=== PATIENT | female | born 1965 | race Caucasian/White ===

== ENCOUNTER → 2018-04-04 | Outpatient (CLI) | payer BC, OTHER ==
--- NOTE | 2018-04-04 13:49 | US ---
EXAMINATION TYPE: US venous doppler duplex LE RT DATE OF EXAM: 04/04/2018 1:31 PM COMPARISON: NONE CLINICAL HISTORY: [id number] PAIN IN RT LOWER LEG. right leg cramping, no h/o dvt SIDE PERFORMED: Right TECHNIQUE: The lower extremity deep venous system is examined utilizing real time linear array sonog hilary with graded compression, doppler sonography and color-flow sonography. VESSELS IMAGED: External Iliac Vein (EIV) Common Femoral Vein Deep Femoral Vein Greater Saphenous Vein * Femoral Vein Popliteal Vein Small Saphenous Vein * Proximal Calf Veins (* superficial vessels) Right Leg: Appears negative for DVT spoke with ordering PAC Josie Allan regarding revising order to state right leg venous doppler and tech impression of negative findings. New order is to be faxed. IMPRESSION: 1. No diagnostic evidence of DVT as visualized.
== END | disposition home or self-care (01) ==
LOC: RADUSWWP 13:02
PROVIDERS: ATTEND Family Medicine
DX: M79.661 Pain in right lower leg (principal)

== ENCOUNTER → 2020-05-22 | Outpatient (CLI) | payer OTHER ==
--- NOTE | 2020-05-22 13:39 | XR ---
Lumbosacral spine HISTORY: Low back pain 5 views of lumbosacral spine Bone mineralization is reduced. There is multilevel spondylosis. Lumbar vertebral bodies show preserv ed height. Retrolisthesis grade 1 L4-5. Loss of disc height L3-4, L4-5 and L5-S1, associated vacuum p henomenon. Sclerosis is present in the posterior elements. No evident spondylolysis. Surgical clips a re present right upper quadrant. There is mild spinal curvature. IMPRESSION: Degenerative disease, facet arthropathy, osteopenia.
== END | disposition home or self-care (01) ==
LOC: RADXRYALE 10:36
PROVIDERS: ATTEND Physician Assistant Medical
DX: M47.817 Spondylosis without myelopathy or radiculopathy, lumbosacral region (principal); M51.37 Other intervertebral disc degeneration, lumbosacral region; M85.80 Other specified disorders of bone density and structure, unspecified site
CPT/HCPCS: 72110

== ENCOUNTER → 2020-12-03 | Outpatient (CLI) | payer OTHER ==
--- NOTE | 2020-12-03 08:11 | CT ---
EXAMINATION TYPE: CT sinus wo con DATE OF EXAM: 12/03/2020 COMPARISON: None HISTORY: Chronic sinusitis CT DLP: 605.9 mGycm. Automated Exposure Control for Dose Reduction was Utilized. TECHNIQUE: CT scan of the sinuses is performed without contrast, axial images are obtained, coronal r eformatted images are also reviewed. FINDINGS: The paranasal sinuses including the frontal, ethmoid, sphenoid, and maxillary sinuses bila terally are well-aerated without abnormal opacification. The ostiomeatal complex is patent bilateral ly on the coronal images. Visualized portion of mastoid air cells show no abnormal opacification. The globes are intact bilate rally, punctate calcification present at the level of the head of the optic nerve on the left. IMPRESSION: The sinuses are clear and the ostiomeatal complex is patent bilaterally. Optic drusen on the left.
== END | disposition home or self-care (01) ==
LOC: RADCTMAIN 07:23
PROVIDERS: ATTEND Otolaryngology
DX: H47.322 Drusen of optic disc, left eye (principal)
CPT/HCPCS: 70486

== ENCOUNTER → 2021-01-24 | Outpatient (CLI) | payer OTHER ==
[2021-01-26 08:18] LABS: Alt. alternata IgE Class CLASS 0; Alternaria alternata IgE <0.10 kU/L (<0.10); Asperg. fumagatus IgE <0.10 kU/L (<0.10); Asperg. fumagatus IgE Class CLASS 0; Aureo. pullulans IgE <0.10 kU/L (<0.10); Aureo. pullulans IgE Class CLASS 0; Birch(Com.Silvr) IgE <0.10 kU/L (<0.10); Birch(Com.Silvr) IgE Class CLASS 0; Candida albicans IgE Class CLASS 0/1; Cat Epith & Dander IgE <0.10 kU/L (<0.10); Cat Epith & Dander IgE Class CLASS 0; Clad herbarum IgE <0.10 kU/L (<0.10); Clad herbarum IgE Class CLASS 0; Cockroach IgE <0.10 kU/L (<0.10); Com. Pigweed IgE <0.10 kU/L (<0.10); Com. Pigweed IgE Class CLASS 0; Cottonwood IgE <0.10 kU/L (<0.10); Dermato. Pteronyssinus Class CLASS 0; Dermato. Pteronyssinus IgE <0.10 kU/L (<0.10); Dermato. farinae IgE <0.10 kU/L (<0.10); Dermato. farinae IgE Class CLASS 0; Dog Dander IgE <0.10 kU/L (<0.10); English Plantain IgE Class CLASS 0; Epicoccum purpurascens Class CLASS 0; Epicoccum purpurascens IgE <0.10 kU/L (<0.10); Johnson Grass IgE Class CLASS 0; Lamb's Quarter IgE 0.15 kU/L (<0.10); Lamb's Quarter IgE Class CLASS 0/1; Maple (Box Elder) IgE <0.10 kU/L (<0.10); Maple (Box Elder) IgE Class CLASS 0; Mucor racemosus IgE <0.10 kU/L (<0.10); Mucor racemosus IgE Class CLASS 0; Oak IgE <0.10 kU/L (<0.10); Rhizopus nigricans IgE <0.10 kU/L (<0.10); Rhizopus nigricans IgE Class CLASS 0; S.rostrata/Helminth Class CLASS 0; S.rostrata/Helminth IgE <0.10 kU/L (<0.10); Sycamore(Mpl.Lf) IgE <0.10 kU/L (<0.10); Sycamore(Mpl.Lf) IgE Class CLASS 0; Timothy Grass IgE <0.10 kU/L (<0.10); Timothy Grass IgE Class CLASS 0; Walnut Tree IgE <0.10 kU/L (<0.10); Walnut Tree IgE Class CLASS 0; White Ash IgE Class CLASS 0
== END | disposition home or self-care (01) ==
LOC: LABWHC1 08:17
PROVIDERS: ATTEND Otolaryngology
DX: L50.0 Allergic urticaria (principal); B44.89 Other forms of aspergillosis; J30.89 Other allergic rhinitis
CPT/HCPCS: 36415; 86001; 86003

== ENCOUNTER 2021-10-28 11:22 | Emergency (ER) | payer OTHER ==
[2021-10-28 11:32] VITALS: TEMP 97.8
--- NOTE | 2021-10-28 12:35 | CT ---
EXAMINATION TYPE: CT brain christopher strong con DATE OF EXAM: 10/28/2021 COMPARISON: None HISTORY: slip and fall, hit back of head, trauma and pain CT DLP: 1485 mGycm Automated exposure control for dose reduction was used. TECHNIQUE: CT scan of the head and cervical spine are performed without contrast. FINDINGS: There is no acute intracranial hemorrhage, mass effect, or midline shift identified. The ventricles and sulci are within normal limits in size. Mild inferior cerebellar tonsillar ectopia n oted. There is cortical atrophy. The globes are intact and the visualized sinuses are clear. Cervical spine is visualized in its entirety from C1 through upper thoracic levels and demonstrates s atisfactory alignment without evidence of acute fracture or dislocation. Prevertebral soft tissue ap pears within normal limits. There is multilevel spondylosis and facet arthropathy. Loss of disc heigh t present at C5-6. The C1-C2 articulation is unremarkable. IMPRESSION: 1. There is no acute fracture or dislocation evident in the cervical spine. 2. No acute intracranial hemorrhage, mass effect, or midline shift is seen.
--- NOTE | 2021-10-28 12:45 | ED ---
Fall HPI - General Chief Complaint: Fall Stated Complaint: Fall Time Seen by Provider: 10/28/21 11:30 Source: EMS Mode of arrival: EMS - History of Present Illness Initial Comments: 56-year-old female presents emergency Department after she sustained a fall at work. She works at the [employer]. She states that she was pulling some hoses when she lost her balance and fell. She fell onto her right hip and then backwards onto the back of her head. She did not lose consciousness. Has a large occipital hematoma. She admits that she had intense pain when it first happened which has now resolved. Denies any headaches or visual changes. No nausea or vomiting. She has been ambulatory without difficulty. No unilateral numbness or weakness. She has chronic right hip pain and states it doesn't feel any worse than it normally does. She has been able to ambulate without difficulty. Her work recommended that she come into the emergency room for evaluation. No other alleviating, vault person modifying factors - Related Data Home Medications Medication Instructions Recorded Confirmed Levothyroxine Sodium [Synthroid] 25 mcg PO DAILY 09/29/15 10/28/21 Calcium Carbonate [Calcium] 600 mg PO HS 10/28/21 10/28/21 Cholecalciferol [Vitamin D3 (25 25 mcg PO HS 10/28/21 10/28/21 Mcg = 1000 Iu)] Diclofenac Sodium 50 mg PO BID PRN 10/28/21 10/28/21 lisinopriL [Zestril] 10 mg PO DAILY 10/28/21 10/28/21 Allergies Allergy/AdvReac Type Severity Reaction Status Date / Time erythromycin base AdvReac Nausea & Verified 10/03/15 08:53 Vomiting sulfamethoxazole AdvReac Nausea & Verified 10/03/15 08:53 [From Bactrim] Vomiting trimethoprim [From Bactrim] AdvReac Nausea & Verified 10/03/15 08:53 Vomiting Review of Systems ROS Statement: Those systems with pertinent positive or pertinent negative responses have been documented in the HPI. ROS Other: All systems not noted in ROS Statement are negative. Past Medical History Past Medical History: GERD/Reflux, Hypertension, Skin Disorder, Thyroid Disorder Additional Past Medical History / Comment(s): HIATAL HERNIA, BLOATING, ABD PAIN, CONSTIPATION, DIARRHEA, STATES "HAS AN OCCASIONAL SKIN CONDITION IN AREAS WHERE SHE SWEATS" History of Any Multi-Drug Resistant Organisms: None Reported Past Surgical History: Cholecystectomy Additional Past Surgical History / Comment(s): EGD Past Anesthesia/Blood Transfusion Reactions: No Reported Reaction Past Psychological History: No Psychological Hx Reported Past Alcohol Use History: Occasional Additional Past Alcohol Use History / Comment(s): STATES STARTED SMOKING AGE 17, 1 PPD Past Drug Use History: None Reported - Past Family History Mother Family Medical History: Deep Vein Thrombosis (DVT) General Exam General appearance: alert, in no apparent distress Head exam: Present: normocephalic, other (right occipital hematoma - 5 x 6 cm) Eye exam: Present: normal appearance, PERRL, EOMI. Absent: scleral icterus, conjunctival injection, periorbital swelling ENT exam: Present: normal exam, mucous membranes moist Neck exam: Present: normal inspection. Absent: tenderness, meningismus, lymphadenopathy Respiratory exam: Present: normal lung sounds bilaterally. Absent: respiratory distress, wheezes, rales, rhonchi, stridor Cardiovascular Exam: Present: regular rate, normal rhythm, normal heart sounds. Absent: systolic murmur, diastolic murmur, rubs, gallop, clicks GI/Abdominal exam: Present: soft, normal bowel sounds. Absent: distended, tenderness, guarding, rebound, rigid Extremities exam: Present: normal inspection, full ROM, normal capillary refill. Absent: tenderness, pedal edema, joint swelling, calf tenderness Back exam: Present: normal inspection Neurological exam: Present: alert, oriented X3, CN II-XII intact Psychiatric exam: Present: normal affect, normal mood Skin exam: Present: warm, dry, intact, normal color. Absent: rash Course Vital Signs 10/28/21 10/28/21 11:28 13:08 Temperature 97.8 F Pulse Rate 81 77 Respiratory 18 16 Rate Blood Pressure 172/97 157/87 O2 Sat by Pulse 99 97 Oximetry Medical Decision Making - Medical Decision Making Upon arrival patient was placed into room 29. A thorough history and physical exam was performed. The patient is sent for CT of her brain and cervical spine which demonstrates no acute injuries. Patient's does have a 10 panel drug test performed as this is requested by her work. She'll be discharged home and instructed to follow up with her Workmen's Compensation as needed. Return for any new or worsening symptoms. Patient was discharged home in stable condition Disposition Clinical Impression: Fall, Concussion without loss of consciousness Disposition: HOME SELF-CARE Condition: Stable Instructions (If sedation given, give patient instructions): Concussion (ED) Additional Instructions: Please follow-up with primary care doctor in 2-4 days. Return for any new or worsening symptoms Is patient prescribed a controlled substance at d/c from ED?: No Referrals: Luís Ortiz DO [Primary Care Provider] - 1-2 days Time of Disposition: 12:45
[2021-10-28] MEDS ORDERED: IBUPROFEN 600 MG TAB PO STA (12:49)
[2021-10-28 13:10] VITALS: BP 157/87; PULSE 77; RESP 16
== END 2021-10-28 13:09 | disposition home or self-care (01) ==
LOC: EC 11:22
DX: S06.0X0A Concussion without loss of consciousness, initial encounter (principal); G89.29 Other chronic pain; E07.9 Disorder of thyroid, unspecified; K21.9 Gastro-esophageal reflux disease without esophagitis; I10 Essential (primary) hypertension; Z88.1 Allergy status to other antibiotic agents; Z88.2 Allergy status to sulfonamides; Z90.49 Acquired absence of other specified parts of digestive tract; Z87.891 Personal history of nicotine dependence; Z79.899 Other long term (current) drug therapy; W01.10XA Fall on same level from slipping, tripping and stumbling with subsequent striking against unspecified object, initial encounter; Y99.0 Civilian activity done for income or pay
CPT/HCPCS: 70450; 72125; 99284

== ENCOUNTER → 2023-04-26 | Outpatient (CLI) | payer OTHER ==
--- NOTE | 2023-04-27 22:39 | XR ---
EXAMINATION TYPE: XR lumbosacral spine min 4V DATE OF EXAM: 04/26/2023 COMPARISON: 05/22/2020 HISTORY: Lumbago right-sided sciatica TECHNIQUE: 5 view lumbar spine FINDINGS: There are 5 lumbar-type vertebral bodies. T12 ribs are rudimentary. Pedicles are intact. Fa cet degenerative changes are present. There is loss of disc height at L3-4 through L5-S1. Some mild v acuum phenomenon is present all 45. Remaining disc heights are preserved. Spondylosis is present. No spondylolytic defects are evident. No significant interval change from prior study. IMPRESSION: 1. Degenerative facet changes and lower lumbar spine degenerative disc changes.
== END | disposition home or self-care (01) ==
LOC: RADXRYALE 15:53
PROVIDERS: ATTEND Physician Assistant
DX: M47.26 Other spondylosis with radiculopathy, lumbar region (principal); M51.16 Intervertebral disc disorders with radiculopathy, lumbar region
CPT/HCPCS: 72110

== ENCOUNTER → 2024-01-23 | Outpatient (CLI) | payer BC ==
--- NOTE | 2024-01-23 16:45 | CT ---
EXAMINATION TYPE: CT lumbar spine wo con CT DLP: 818 mGycm, Automated exposure control for dose reduction was used. DATE OF EXAM: 01/23/2024 4:35 PM COMPARISON: . CLINICAL INDICATION:Female, 59 years old with history of M54.50 LOW BACK PAIN M54.16 LOW BACK PAIN; P HH, low back pain TECHNIQUE: Multiple axial images were obtained from the midportion of T11 through the sacroiliac jeanine nts. Soft tissue and bone windows in coronal and sagittal planes were obtained and reviewed. 3-D ref ormats of the bones were created on a separate workstation and submitted for review. Contrast used: mL of , (None, if empty). Oral contrast used: (None, if empty). FINDINGS: Alignment: There are 5 lumbar type vertebral bodies within normal alignment. Bone: Multilevel degeneration changes throughout the spine with osteophyte formation disc space narr owing and facet joint arthropathy. No evidence for fracture. Early Schmorl's nodes noted at multiple levels including the inferior endplate of L1 superior endplate of L2 superior endplate of L3. Vacuum disc phenomenon at L4-L5 and L5-S1. Discs: T12-L1: No spinal canal or neural foraminal stenosis is identified. L1-L2: No spinal canal or neural foraminal stenosis is identified. L2-L3: No spinal canal or neural foraminal stenosis is identified. L3-L4: Facet joint arthropathy and disc bulging result with mild spinal canal stenosis and mild to mo derate bilateral neural foraminal stenosis. L4-L5: Facet joint arthropathy and disc bulging result with moderate to severe spinal canal stenosis and mild to moderate bilateral neural foraminal stenosis. L5-S1: Facet joint arthropathy and disc bulging result with mild to moderate spinal canal stenosis an d moderate bilateral neural foraminal stenosis. Other: The gallbladder surgically absent. Atherosclerosis of the arterial vasculature. What is thoug ht to represent the appendix is gas-filled. IMPRESSION: 1. No evidence for spinal fracture. There is moderate disc degeneration changes throughout the spine worse in the lower lumbar spine. 2. L4-L5 moderate to severe spinal canal stenosis. 3. Moderate bilateral L5-S1 neural foraminal stenosis.
== END | disposition home or self-care (01) ==
LOC: RADCTMAIN 16:18
PROVIDERS: ATTEND Orthopaedic Surgery
DX: M54.16 Radiculopathy, lumbar region (principal); M48.061 Spinal stenosis, lumbar region without neurogenic claudication; M51.36 Other intervertebral disc degeneration, lumbar region
CPT/HCPCS: 72131

== ENCOUNTER → 2024-06-22 | Outpatient (CLI) | payer BC | END | disposition home or self-care (01) | LOC: LABPAT 11:16 | PROVIDERS: ATTEND Orthopaedic Surgery | DX: Z01.818 Encounter for other preprocedural examination (principal); Z22.322 Carrier or suspected carrier of Methicillin resistant Staphylococcus aureus; M47.26 Other spondylosis with radiculopathy, lumbar region | CPT/HCPCS: 86850; 86900; 86901; 87070 ==

== ENCOUNTER 2024-06-29 10:55 | Day surgery (SDC) | payer BC ==
[2024-06-25 14:15] VITALS: BMI 29.4
[~2024-06-29 10:55] MED LIST: ACETAMINOPHEN TAB 500 MG TAB PO PRN; MIDAZOLAM 2 MG/2 ML VIAL IV PRN; TRANEXAMIC 1,000 MG/100ML-NACL 1,000 MG in SALINE 1 100ML.BAG IVPB PRN
[2024-06-29] MEDS: LACTATED RINGERS 1,000 ML IV ONE ×2 (11:38→13:58)
[2024-06-29] MEDS: IV FLUID CONTINUATION 1,000 ML IV ONE (11:38)
[2024-06-29] MEDS: ONDANSETRON 4 MG/2 ML VIAL IVP PRN (11:45)
[2024-06-29] MEDS: GABAPENTIN 300 MG CAP PO PRN (11:45)
[2024-06-29] MEDS: SCOPOLAMINE 1 MG/72 HR PATCH TRANSDERM ONE (11:47)
[2024-06-29] MEDS ORDERED: KETOROLAC 15 MG/ML 1 ML VIAL ONE (12:29)
[2024-06-29] MEDS ORDERED: fentaNYL (PF) 50 MCG/ML 2 ML AMP ONE (12:29)
[2024-06-29] MEDS ORDERED: NEOSTIGMINE 1 MG/ML 10 ML VIAL ONE (12:29)
[2024-06-29] MEDS ORDERED: TRANEXAMIC 1,000 MG/100ML-NACL PREMIX BAG ONE (12:29)
[2024-06-29] MEDS ORDERED: LIDOCAINE 1% INJ 10MG/ML (20 ML MDV) ONE (12:29)
[2024-06-29] MEDS ORDERED: GLYCOPYRROLATE 0.2 MG/ML 2 ML VIAL ONE (12:29)
[2024-06-29] MEDS ORDERED: PROPOFOL 10 MG/ML 20 ML VIAL IV ONE (12:29)
[2024-06-29] MEDS ORDERED: ROCURONIUM 10 MG/ML (5 ML VIAL) IV ONE (12:29)
[2024-06-29] MEDS ORDERED: SUCCINYLCHOLINE CHLORIDE 200 MG/10 ML VIAL IV ONE (12:29)
[2024-06-29] MEDS ORDERED: LIDOCAINE 4% LTA KIT (4 ML) TOPICAL ONE (12:29)
[2024-06-29] MEDS ORDERED: MIDAZOLAM 2 MG/2 ML VIAL ONE (12:29)
[2024-06-29] MEDS ORDERED: PHENYLEPHRINE 10 MG/ML VIAL ONE (12:29)
[2024-06-29] MEDS ORDERED: HYDROmorphone (PF) 1 MG/ML ONE (12:29)
--- NOTE | 2024-06-29 12:48 | P.HPOR ---
History of Present Illness H&P Date: 06/22/24 .D:Date: 06/22/24 : 04:13pm .T:Title: *PRE-OP H1 [facility] [address] [place], [place] [address] [address]| PROVIDER: DIRK YOUSSEF DO CLINICAL SUMMARY: * Ms. Cox is a 59-year-old female who presents with severe lumbar pain rated 8/10 on VAS scale. She has failed conservative management including DIANE, PT, OT, HEP, medications, and activity modifications. Imaging reveals multilevel degenerative lumbar spondylosis with right lateral recess stenosis at L4-L5 affecting the L5 nerve root. She reports significant leg pain and difficulty with bowel movements due to pain and weakness, though denies miah incontinence. SURGICAL PLAN: Patient is scheduled for L1-L3 laminectomy decompression. Pre-operative kenny arance from PCP is required. Patient has been counseled extensively on surgical risks and benefits, including potential complications such as infection, bleeding, nerve injury, and hardware-related issues. Educational materials have been provided and reviewed with the patient. FOLLOW-UP PLAN: Patient will return for post-operative evaluation. Medications have been reviewed. Patient understands post-operative care instructions and has had all questions addressed. Will continue to monitor progress and adjust treatment plan as needed. DEMOGRAPHICS: Age: 59 year Height: 5'7" Weight: 215 lbs BP:/ BMI: 33.67 kg/m2 Occupation: *[employer] CC: *lumbar pain VAS: *8 HISTORY: Ms. Cox presents today, 06/22/24 for a pre-operative appointment preceding her L1-L3 LAMINECTOMY DECOMPRESSION. She states she continues to have severe debilitating issues related to her low back and legs despite several DIANE, PT, OT, HEP, medications Rx and OTC as well as ice/heat, rest and activity modific ation. She states she is ready for surgical intervention. She states she just wants to be out of pain and have her legs feel better and work better. No new trauma. No f/c/sob/cp at this time. Denies bowel or bladder issues in incontinence, but she finds it hard to have Bm due to pain in the legs are back as well as what seems like weakness in her ability to go. She is not losing stool or having UI at this time. Patient is currently taking [place]. She ambulates independently. Ms. Cox presents today, 04/04/24 on follow up of her low back and to discuss further surgical options as well as schedule surgery. She states she continues to have severe debilitating issues related to her low back and legs despite several DIANE, PT, OT, HEP, medications Rx and OTC as well as ice/heat, rest and activity modification. She states she is ready for surgical intervention. She states she just wants to be out of pain and have her legs feel better and work better. No new trauma. No f/c/sob/cp at this time. Denies bowel or bladder issues in incontinence, but she finds it hard to have Bm due to pain in the legs are back as well as what seems like weakness in her ability to go. She is not losing stool or having UI at this time. Ms. Cox presents to the office today, 01/25/24, for re-evaluation of low back pain and review CT scan lumbar spine results. The patient reports experiencing a continued sharp, shooting pain pain across the low jhon that radiates down into the left lower extremity with a burning, throbbing quality. She notes her left leg pain is associated with numbness and tingling through the L5 distribution. She states her current symptoms worsen after prolonged sitting, walking, and standing. She states her symptoms have worsened over the last 2 months. She reports mild night time symptoms related to her ongoing pain and associated symptoms. She trialed physical therapy 3 months ago causing worsening symptoms. She notes that water therapy provides her with some relief. She has trialed all other conservative measures listed below with mild, temporary relief. She is currently taking Tramadol for relief of her current symptoms. She previously trialed Lyrica with no relief. Otherwise, the patient denies any f/c/sob/cp, perineal numbness or tingling, bowel, or bladder incontinence/retention. Patient is ambulatory independently. The patients past social, medical, family, surgical history, as well as review of systems, have been reviewed. Please refer to the History and Physical form that has been scanned into our electronic medical record system. 16 points review of systems completed and as stated in HPI, all other systems reviewed are negative. PAST TREATMENTS: PAST IMAGING: - Yes TRAUMA RELATED: - No WORK RELATED: - No PT IN LAST 6 MONTHS: - Yes; made symptoms worse PHYSICIAN DIRECTED HOME EXERCISE PROGRAM: - Yes; no significant relief ACTIVITY MODIFICATION: - Yes MEDICATIONS: - Tramadol ALTERNATIVE INTERVENTIONS (CHIROPRACTIC, ACUPUNCTURE, MASSAGE, RICE): - Yes (home heat/ice therapies & rest); mild, temporary relief BRACING: - None INJECTIONS (DIANE, TF, RFA): - Yes, DIANE of the Lumbar spine at OAwith no significant relief MEDICAL HISTORY: Past Medical History: REVIEWED STATED IN CHART Past Surgical History: REVIEWED STATED IN CHART Social History: REVIEWED STATED IN CHART SMOKING: Current smoker ETOH: None SUBSTANCES: None Family History: REVIEWED STATED IN CHART Current Medications: P1Rx: levothyroxine Ref: 0 Rx: lisinopriL 20 mg tablet Ref: 0 Rx: traMADol Ref: 0 P1 PHYSICAL EXAM: General: AOX3, NAD, Well hydrate, Well nourished, in no acute distress HEENT: No lumps or masses Extremities: No color changes, no pooling Hairy Patches: ABSENT Dorsal Skin Dimples: Normal [employer] spots: ABSENT Surgical Incisions: Muscle Appearance: Well formed, no atrophy Palpation: Midline: NO Paracervical: NO Parathoracic: NO Paralumbar: YES SIJ Testing: RIGHT/LEFT TTP: No [place] Finger: No FABER4: No Compression: No Distraction: No Thigh thrust: No Hip thrust: No Postural Balance: Coronal: BALANCED Sagittal: BALANCED Shoulder height: LEVEL Pelvic Girdle: LEVEL ROM and Appearance: Neck: UNRESTRICTED Lumbar: RESTRICTED Shoulders: Symmetrical Hips: Symmetrical Knees: Symmetrical Hands: Symmetrical Feet: Symmetrical VASCULAR STATUS: RUE- 2 LUE-2 RLE-2 LLE-2 Edema: NONE NEUROLOGICAL EXAMINATION: Mental Status: Awake, alert, oriented fully with normal attention, concentration and memory. Fluent appropriate speech. CRANIAL NERVES: I: Olfactory not tested. II: Visual acuity normal, no visual field deficit noted with confrontation. III,IV: Normal pupillary reflexes & intact extraocular movements without nystagmus. V,: Intact symmetrical facial sensation. VII: Intact symmetrical facial motor movementVIII: Hearing intact. IX,X: Intact gag, swallow, & normal voice. XI: Sternocleidomastoid, trapezius function intact. XII: Tongue midline with normal movements. TENSIONING: SLR-NEG Lhermittes- NEG Spurling's Sign- NEG Cubital Percussion- NEG Tinels at wrist- NEG MOTOR EXAM (0-5/5, NT) Muscle appearance:Symmetrical, without signs of atrophy or dystrophy UPPER EXTREMITY RIGHT LEFT Shoulder Abduction 5 5 Biceps 5 5 Triceps 5 5 Wrist Extension 5 5 Hand Intrinsics 5 5 Power Generation Engineer 5 5 -Hand and finger dexterity intact bilaterally? YES -Dysdiadochokinesia examination negative bilaterally? YES LOWER EXTREMITY RIGHT LEFT Hip Flexion 4 5 Knee Extension 4 5 Knee Flexion 4 5 Dorsiflexion 4 5 Plantarflexion 4 5 EHL 4 5 FHL 4 5 REFLEXES (0-4/2, NT): RUE-2LUE-2 RLE-2 LLE-2 PATHOLOGICAL REFLEXES: Hoffmans: ABSENT BL Clonus: ABSENT BL Babinski: NEG BL Rectal Tone: INTACT SENSATION (0-4, NT): RUE-2LUE-2 RLE-2 LLE-2 Dermatomal deficit: L4-L5 GAIT AND FUNCTIONAL EVALUATION: Ambulatory aids- INDEPENDENT Rombergs test- NEG toe/heel walk- INTACT Squatting to a min of 60 deg and back- ABLE Single leg stance- ABLE Hand to finger (nose)- ABLE smooth Trendelenburg sign negative bilaterally IMAGING: XRay Lumbar Multiview (AP, Lateral, Flexion, Extension) with AP pelvis; 5 views taken at [facility] on 12/15/23: Mild to moderate spondylitic and degenerative changes L3-S1. Multilevel diminished disc height at these levels. Mild Grade 1 retrolisthesis L4 onto L5. Vertebral body heights are preserved. No acute osseous abnormalities. Pelvis: The visualized sacrum and iliac wings are within normal limits. CT Date: 01/23/2024 Location: [facility] Region:Lumbar Contrast:N FINDINGS: Images reviewed with pt. There is seen here L3-S1 spondylosis with disc degeneration, facet arthropathy and hypertrophy. There is noted again a L4-5 HNP paracentral to the right side with central and foraminal encroachment that is moderate at this time. This is better seen on MRI. No acute fractures noted. Alignment shows decreased LL secondary to the degenerative collapse overall. There are no lesions noted. [facility]: Impression: 1. Multilevel degenerative lumbar spondylosis 2. At L4-L5 there is right lateral recess stenosis with abutment of the transversing right L5 nerve root. There is also narrowing of the left lateral recess and mild narrowing of the spinal canal. IMPRESSION: It was my pleasure to have seen and examined Zarina. I reviewed the patient's clinical syndrome, physical findings, and imaging studies during the appointment today. It is my impression that the patient has a diagnosis of. 1. L4-5 herniated nucleus pulposus 2. L3-S1 spondylosis 3. RIGHT > LEFT lower extremity radiculopathy 4. Low back pain PLAN: DISCUSSION: -I have discussed operative versus non-operative treatment measures with the patient. I have recommended surgical intervention in the form of a L1-L3 laminectomy decompression secondary to the patient's symptomatic disc herniation at L4-5 and progressive left lower extremity radiculopathy and stenosis from L1- 3 with correlating sx with MRI. The patient verbally understands all risks and benefits to the procedure and states she would like to proceed, but wants to wait until June 2024 due to specific family and life obligations over the next several months. She will return pre op for re-evaluation and to re- discuss/schedule surgical intervention. SURGICAL RECOMMENDATION -L1-L3 LAMINECTOMY DECOMPRESSION THERAPIES -Cont. with home exercises and home PT exercises as able -Cont. with Heat/Ice as warranted -Cont. with supplementation Vit D, Vit C, Ca2+, High protein diet -OK for massage or other alternative treatment modalities as able. If it exacerbates your sx do not continue ACTIVITY -Recommend walking up to 30 min 2x daily on a flat easy surface with good support. MEDICATIONS -Take as directed -Cont. home medications as directed by your PCP. Check with your PCP for any medication interactions or issues if needed. -Pre op Labs: CBC, BMP, PT, INR, CXR, EKG -PCP clearance for surgery -Risk Review for surgical discussion Spine Surgery Risk Review Ms. Cox is presenting for evaluation of lumbar pain. It was my pleasure to have seen and examined Ms. Cox. In our visit today we have had a chance to go over subjective complaints, physical examination findings and treatments including the natural course history without intervention and various interventional options. The patients imaging demonstrates: XRay Lumbar Multiview (AP, Lateral, Flexion, Extension) with AP pelvis; 5 views taken at [facility] on 12/15/23: Mild to moderate spondylitic and degenerative changes L3-S1. Multilevel diminished disc height at these levels. Mild Grade 1 retrolisthesis L4 onto L5. Vertebral body heights are preserved. No acute osseous abnormalities. Pelvis: The visualized sacrum and iliac wings are within normal limits. CT Date: 01/23/2024 Location: [facility] Region:Lumbar Contrast:N FINDINGS: Images reviewed with pt. There is seen here L3-S1 spondylosis with disc degeneration, facet arthropathy and hypertrophy. There is noted again a L4-5 HNP paracentral to the right side with central and foraminal encroachment that is moderate at this time. This is better seen on MRI. No acute fractures noted. Alignment shows decreased LL secondary to the degenerative collapse overall. There are no lesions noted. [facility]: Impression: 1. Multilevel degenerative lumbar spondylosis 2. At L4-L5 there is right lateral recess stenosis with abutment of the transversing right L5 nerve root. There is also narrowing of the left lateral recess and mild narrowing of the spinal canal. On physical exam, Ms. Cox demonstrates: She states she continues to have severe debilitating issues related to her low back and legs despite several DIANE, PT, OT, HEP, medications Rx and OTC as well as ice/heat, rest and activity modification. She states she is ready for surgical intervention. She states she just wants to be out of pain and have her legs feel better and work better. No new trauma. No f/c/sob/cp at this time. Denies bowel or bladder issues in incontinence, but she finds it hard to have Bm due to pain in the legs are back as well as what seems like weakness in her ability to go. She is not losing stool or having UI at this time. Patient is currently taking [place]. She ambulates independently. I have explained to the patient that as their condition progresses it will cause further neurological deficits and eventual paralysis. Based on the patients imaging, physical exam, and the rapid progression and disabling nature of their symptoms, at this time I recommend surgery in the form of a: L1-L3 LAMINECTOMY DECOMPRESSION. I discussed the risk and benefits of this procedure at length with Ms. Cox. The patient agreed to considered pursuing the procedure abovementioned. Prior to surgery, she should follow up with her PCP (Cardio, ID, IM etc) for clearance. Questions were invited and answered, and the patient wishes to proceed as outlined below. Currently, I am recommendin.L1-L3 LAMINECTOMY DECOMPRESSION 2.Follow up with PCP for surgical clearance 3.Review of surgical risks and benefits as well as an educational packet on the proposed surgical procedure. Risks: All surgical procedures come with inherent risks, including those related to positioning, anesthesia, intraoperative findings, and postoperative complications. It is important to understand that surgery does not come with any guarantee of a successful outcome as complications and adverse events are always possible. The patient was given a handout in office today discussing the surgical procedure and risks associated with the intervention, both of which were discussed with the patient. These risks include but are not limited to the following: * Experiencing same, different or even worse symptoms in back, neck, arms, or legs compared to before surgery. Requiring further surgery or other forms of treatment presently or at some time in the future at same or other levels of the intended spine surgery. On an extreme but fortunately relatively rare basis severe complication such as blindness, stroke, heart attack, temporary and/or permanent nerve injury, paralysis, coma, or may occur, sometimes without known explanation. Surgical complications may include but are not limited to risk of infection, fluid accumulation in the surgical dissection site, including a seroma or hematoma, that requires additional surgery, wound drainage, bleeding, new numbness or weakness, vision changes/loss, spinal fluid leakage, non-healing and/or infected incision, headaches, difficulty or inability to swallow, hoarseness, hemopneumothorax, pneumothorax, impotence, retrograde ejaculation, vaginal dryness; injury to nerves, spinal cord, blood vessels, lymphatics or other vital organs (i.e., bowel injury, injury to the great vessels); heterotopic bone formation; complications related to the hardware such as screws, rods, cages including misplaced hardware, device failure, instrumenta tion at the wrong spine level, hardware fracture/breakage, or hardware loosening; vertebral failure of the spinal column above or below the newly placed hardware; retained surgical instrumentations or devices and the need for further surgery. * Medical risks of the planned spine surgery include but are not limited to generalized Infections to the whole body or local areas outside of the mcclain rgical site (sepsis), heart attack, bleeding, anaphylaxis, meningitis, seizure, epilepsy, hearing loss, burn guidry, laceration of the head or other areas of the body, bruising, hypersensitivity of the skin, bladder over distension; allergic reaction; shoulder injury related to positioning; fat, blood and air clots to other areas of the body like heart, lungs, brain; failure of internal organs such as lungs, kidneys, liver and excessive bleeding. If blood transfusions are necessary, note that transfusions may cause intolerance reactions such as anaphylaxis or other complex reactions. Despite best efforts, the results of spine surgery might not heal in terms of bone, soft tissues such as skin, fascia, ligaments, and joints. Additionally, in order to achieve best possible results, spine surgery may be carried out beyond the initially planned levels and involve decompression, fusion including insertion of hardware at levels other than the original intended area of surgical interest change some portions of the procedure in order to ensure the best possible outcomes. With spine surgery and spinal fusion, there are different off label uses of instrumentation (devices, implants and hardware) as well as biological substances (bone morphogenic proteins, demineralized bone matrix) as well as using extra bone from allograft sources (i.e. cadaver bone) or autograft (iliac crest bone, ribs, or the spine itself). The patient has been given information about these practices and their inherent risks and benefits. [facility] is an educational center that serves as a training facility for neurosurgical and orthopedic [employer] and Nursing students. Physician assistants are medically trained surgical providers who function in the outpatient, inpatient, and operating room setting under the direct supervision of the attending surgeon. [facility] has multiple operating rooms with single and overlapping rooms running daily. They currently function under the required guidelines as produced by the [facility] Finance Committee with regards to the overlapping rooms and will continue to comply with changes to this policy as they occur. The requirements include and are complied with as follows: (1) the critical portions of the overlapping rooms will not occur at the same time, (2) the attending physician will be physically present during the critical portions of the pro cedure and immediately available during the entire case, and (3) a back-up attending is designated should the primary attending not be immediately available. The patient has had a chance to review all the listed information, has been given print outs detailing this information, and has had all his/her questions answered to their satisfaction. It was my pleasure to have seen and examined Ms. Cox. In our visit today we have had a chance to go over my understanding of our patient's current condition, the natural course history without intervention and various interventional options. Questions were invited and answered, and the patient wishes to proceed as outlined above. I have seen and examined the patient for 25 minutes and we have spent more than 50% of the time in repeat and detailed counseling about the patient's condition, its natural course history with out and as much as can be predicted with surgery and re-review of various surgical treatment options. In conclusion, Ms. Cox requested we proceed with the above suggested surgery and are willing to accept risks and limitations of the suggested surgery as nature of the disease process and our best attempts at treatment for the condition. Thank you again for allowing us to be part of your patient's care. Please don't hesitate to contact me if you have any further questions. FOLLOW UP: *POST-OP PLAN AT NEXT VISIT: * RECHECK PATIENT EDUCATION: Medications Reviewed: YES In our visit today Ms. Cox and I have had a chance to go over my understanding of the patient's current condition, the natural course history without intervention and various interventional options. Questions were invited and answered, and the patient wishes to proceed as outlined above. I will be sure to keep you updated after Ms. Cox returns here for further follow-up. Thank you again for your referral. Please do not hesitate to contact me if you have any further questions. Signed and authenticated by: Dirk Quijanoon [facility] [address] [place] [id number] . This message is confidential, intended only for the named recipient(s) and may contain information that is privileged or exempt from disclosure under applica ble law. If you are not the intended recipient(s), you are notified that the dissemination, distribution or copying of this information is prohibited. If you received this message in error, please notify the sender then delete this message. Past Medical History Past Medical History: COPD, GERD/Reflux, Hypertension, Skin Disorder, Thyroid Disorder Additional Past Medical History / Comment(s): chronic back pain,HIATAL HERNIA, BLOATING, ABD PAIN, CONSTIPATION, DIARRHEA, STATES "HAS AN OCCASIONAL SKIN CONDITION IN AREAS WHERE SHE SWEATS" History of Any Multi-Drug Resistant Organisms: None Reported Past Surgical History: Cholecystectomy Additional Past Surgical History / Comment(s): EGD,colonoscopy Past Anesthesia/Blood Transfusion Reactions: No Reported Reaction Additional Past Anesthesia/Blood Transfusion Reaction / Comment(s): no hx blood transfusion Smoking Status: Current every day smoker - Past Family History Mother Family Medical History: Deep Vein Thrombosis (DVT) Medications and Allergies Home Medications Medication Instructions Recorded Confirmed Type Levothyroxine Sodium [Synthroid] 25 mcg PO QAM 09/29/15 06/29/24 History Calcium Carbonate [Calcium] 600 mg PO HS 10/28/21 06/29/24 History lisinopriL [Zestril] 10 mg PO QAM 10/28/21 06/29/24 History Ergocalciferol [Vitamin D2 (1250 1,250 mcg PO WEEKLY 06/25/24 06/29/24 History Mcg = [id number] Iu)] HYDROcodone/APAP 5-325MG [[place] 1 tab PO TID PRN 06/25/24 06/29/24 History 5-325] Phenylephrine HCl [Sudafed PE] 10 mg PO DAILY PRN 06/25/24 06/29/24 History Allergies Allergy/AdvReac Type Severity Reaction Status Date / Time amoxicillin [From Augmentin] AdvReac Unknown Verified 06/29/24 11:30 clavulanic acid AdvReac Unknown Verified 06/29/24 11:30 [From Augmentin] erythromycin base AdvReac Nausea & Verified 06/25/24 14:00 Vomiting sulfamethoxazole AdvReac Rash/Hives Verified 06/25/24 14:01 [From Bactrim] trimethoprim [From Bactrim] AdvReac Rash/Hives Verified 06/25/24 14:01 Physical Examination Osteopathic Statement: *. No significant issues noted on an osteopathic structural exam other than those noted in the History and Physical/Consult.
[2024-06-29] MEDS: THROMBIN (BOVINE) 5,000 UNIT VIAL TOPICAL ONE (13:14)
[2024-06-29] MEDS: BUPIVACAINE (PF) 0.5% 30 ML VIAL SQ ONE (13:14)
[2024-06-29] MEDS: LIDOCAINE 2%-EPI 1:100,000 20 ML VIAL SQ ONE (13:14)
--- NOTE | 2024-06-29 14:36 | P.OP ---
Date of Procedure: 06/29/24 Preoperative Diagnosis: 1. L3-S1 SPONDYLOSIS WITH STENOSIS 2. L4-5 SPONDYLOLISTHESIS STABLE GRADE I 3. LE RADICULOPATHY 4. LOW BACK PAIN 5. L3 PARESTHESIAS Postoperative Diagnosis: 1. L3-S1 SPONDYLOSIS WITH STENOSIS 2. L4-5 SPONDYLOLISTHESIS STABLE GRADE I 3. LE RADICULOPATHY 4. LOW BACK PAIN 5. L3 PARESTHESIAS Procedure(s) Performed: 1. L4-5 LAMINOFORAMINOTOMY FOR NEURAL DECOMPRESSION 2. L3-4 LAMINOFORAMINOTOMY FOR NEURAL DECOMPRESSION 3. L2-3 LAMINOFORAMINOTOMY FOR NEURAL DECOMPRESSION MIS USE OF IO MICROSCOPE RIGHT Implants: NONE Anesthesia: GETA Surgeon: Winston Pineda Acid Blower #1: Adrian Patterson (was present and assisted with all aspects of the case from position to dressing placement) Estimated Blood Loss (ml): 25 IV fluids (ml): 1,000 Urine output (ml): 250 Pathology: none sent Condition: stable Disposition: PACU Indications for Procedure: Ms. Cox is presenting for evaluation of lumbar pain. It was my pleasure to have seen and examined Ms. Cox. In our visit today we have had a chance to go over subjective complaints, physical examination findings and treatments including the natural course history without intervention and various interventional options. The patients imaging demonstrates: XRay Lumbar Multiview (AP, Lateral, Flexion, Extension) with AP pelvis; 5 views taken at [facility] on 12/15/23: Mild to moderate spondylitic and degenerative changes L3-S1. Multilevel diminished disc height at these levels. Mild Grade 1 retrolisthesis L4 onto L5. Vertebral body heights are preserved. No acute osseous abnormalities. Pelvis: The visualized sacrum and iliac wings are within normal limits. CT Date: 01/23/2024 Location: [facility] Region:Lumbar Contrast:N FINDINGS: Images reviewed with pt. There is seen here L3-S1 spondylosis with disc degeneration, facet arthropathy and hypertrophy. There is noted again a L4-5 HNP paracentral to the right side with central and foraminal encroachment that is moderate at this time. This is better seen on MRI. No acute fractures noted. Alignment shows decreased LL secondary to the degenerative collapse overall. There are no lesions noted[facility]: Impression: 1. Multilevel degenerative lumbar spondylosis 2. At L4-L5 there is right lateral recess stenosis with abutment of the transversing right L5 nerve root. There is also narrowing of the left lateral recess and mild narrowing of the spinal canal. On physical exam, Ms. Cox demonstrates: She states she continues to have severe debilitating issues related to her low back and legs despite several DIANE, PT, OT, HEP, medications Rx and OTC as well as ice/heat, rest and activity modification. She states she is ready for surgical intervention. She states she just wants to be out of pain and have her legs feel better and work better. No new trauma. No f/c/sob/cp at this time. Denies bowel or bladder issues in incontinence, but she finds it hard to have Bm due to pain in the legs are back as well as what seems like weakness in her ability to go. She is not losing stool or having UI at this time. Patient is currently taking [place]. She ambulates independently. I have explained to the patient that as their condition progresses it will cause further neurological deficits and eventual paralysis. Based on the patients imaging, physical exam, and the rapid progression and disabling nature of their symptoms, at this time I recommend surgery in the form of a: L2-5 LAMINoforaminotomy with DECOMPRESSION. I discussed the risk and benefits of this procedure at length with Ms. Cox. I discussed with the patient at length on DOS her MRI findings as well as her new CT scan findings again as well as her sx. Today she is having more sx related to her L2-5 region in regards to her radiculopathy, weakness and tensioning signs which correlates better with her MRI. We originally scheduled her for L1-3 due to her sx, but with her change and the MRI findings as well as CT findings we discussed a simple change in levels and she agrees that this is necessary as she wants her pain gone. We discussed this does not change pre or post op instructions. Risks and benefits are as discussed previously, we are simply addressing the affected levels. She agrees and is willing to assume the risks of surgery. The patient agreed to considered pursuing the procedure abovementioned. Prior to surgery, she should follow up with her PCP (Cardio, ID, IM etc) for clearance. Questions were invited and answered, and the patient wishes to proceed as outlined below. Currently, I am recommendin.L2-5 DECOMPRESSIVE LAMINOFORAMINOTOMY Description of Procedure: L2 to L5 RIGHT LAMINOFORAMINOTOMY MINIMALLY INVASIVE The patient was seen and examined in the preoperative area. All preoperative protocols were followed. Informed consent was obtained, risks and benefits of the procedure were discussed at length. Risks including bleeding infection damage to the surrounding tissue and risk of reoperation were discussed with the patient. Risk of anesthesia up to and including was discussed with the patient. These are outlined in the risk review. They were willing to accept these risks and all of the risks of surgery. The patient was given a weight- based dose of antibiotics in the form of 3 g Ancef. The patient was seen and evaluated by the anesthesia team who deemed them fit for surgery. The site was marked, the patient was willing to proceed with the procedure. The patient was transferred to the operative suite by the Department of anesthesia. They were then drifted off to sleep by the department anesthesia and GETA was performed. The patient tolerated this well. [Bautista catheter was placed by nursing staff, atraumatically]. Once confirmation of lines and ventilation the patient was transferred to a [prone [place] table very carefully]. All bony prominences including wrists, elbows, axilla, chest, hips, and thighs, and feet were padded very well. Special attention was paid to the genitalia and these were padded accordingly. SCDs were placed on bilateral lower extremities and were connected. Arms were well padded and placed [on arm boards up and out in the 90/90 position]. Once in position, again we confirmed good ventilation capabilities and that lines were running appropriately. The patient's lumbar] spine was then exposed. 1010s were placed outlining the incision site. Standard alcohol was used to clean the incision site and allowed to dry. C-arm was used to biomark the patient and confirm level for incision which was marked with a skin marker. Operative briefing was performed with all teams and everyone in agreement to proceed. The patient was then prepped and draped in a normal sterile fashion. Timeout was then performed and all parties were in agreement with the procedure to be performed. Fluoroscopy was then used to target the lamina and pars of L3 through S1. Starting at L4-5 and L3-4 a spinal needle was used to target this area with biplanar fluoroscopy once this was target of the skin incision was made appropriately in order to allow for one dating of the retractor cranial and caudal to be able to attend to all levels from a smaller incision. The first dilator was then sent down and targeted at the L4-L5 region on AP and lateral fluoroscopy. Once this was targeted sequential dilation was taken up to a 26 mm tube by 80 mm tube which was in place and secured to the table with a better. Biplanar fluoroscopy confirmed good placement of this tube. Operating microscope was then brought in for visualization. Limited myomectomy was done to expose the lamina and pars as well as facet joints of L3-4 and L4-5. Once these were identified, hemilaminectomy partial medial facetectomy and foraminotomies was performed using high-speed bur Kerrison Alok pituitary rongeurs and up-biting curet. Good decompression was obtained here as well as over the top decompression of L4-L5 to allow for complete dural decompression in this area. We then translated and went up north after meticulous hemostasis to visualize the L2-3 and L3 4 region. Starting at L2-L3 we re-targeted this area with the retractor system sequentially dilating up to 26 mm tube by 80 mm tube. This was then secured to the table with that arm. Limited myomectomy was performed to visualize the lamina and pars of L2-L3 L3-L4. Facet joints were also identified. Hemilaminotomy, partial knee facetectomy and foraminotomy were then performed at L2-3 and L3 4 as well. This was done with high-speed bur Kerrison rongeurs to chair rongeurs and up-biting curette. Ligament of flavum was removed entirely from this area from L2-5. Hjin-ywd-udh decompression was accomplished at L2-3 and L3-L4. Serrano ball probe was then passed at each level and there was good decompression at each level. Again meticulous hemostasis was performed using FloSeal and patties. The wound bed was then copiously irrigated with normal sterile saline. Good seal was obtained. The tubular retractor was then removed under direct visualization. Microscope removed. We then performed closure. Deep fascia was closed with 0 Vicryl. Deep subcu closed with 0 Vicryl superficial subcu closed with 2-0 Vicryl and skin closed with 2-0 nylon in a running fashion trauma stitch. The wound edges approximated very well. Local anesthetic was then placed in the skin. The wound was then cleaned and dressed sterilely with Adaptic 4 x 4 ABDs and Tegaderm. The patient was transferred back to their hospital bed atraumatically. Patient was then awakened and extubated by the department of anesthesia having tolerated the procedure very well with no complications. They were transferred to the postoperative care unit in stable condition.
--- NOTE | 2024-06-29 14:47 | XR ---
EXAMINATION TYPE: XR lumbar spine 2 or 3V, FL guidance operating room DATE OF EXAM: 06/29/2024 2:34 PM COMPARISON: None CLINICAL INDICATION: Female, 59 years old with history of LUM SARAH WITH DECOM, , FLUOROSCOPY Lumbar laminectomy with [place] 23.8 sec fluoro time 5.1888 DAP 4 images saved [facility], , 06/29/2024 2:44 PM
[2024-06-29] MEDS: HYDROmorphone 0.5 MG/0.5 ML SYRINGE IVP PRN ×2 (15:21→20:50)
[2024-06-29] MEDS ORDERED: ONDANSETRON 4 MG/2 ML VIAL IVP PRN (15:41)
[2024-06-29] MEDS ORDERED: HYDROcodone/APAP 5-325MG 1 EACH TAB PO PRN (15:41)
[2024-06-29] MEDS ORDERED: MAGNESIUM HYDROXIDE 2,400 MG/30 ML CUP PO PRN (15:41)
[2024-06-29] MEDS: LACTATED RINGERS 1,000 ML IV SCH (18:00)
[2024-06-29] MEDS: CYCLOBENZAPRINE 5 MG TAB PO PRN (22:18)
[2024-06-29] MEDS: HYDROcodone/APAP 10-325MG 1 EACH TAB PO PRN (22:18)
--- NOTE | 2024-06-30 01:01 | P.CONS ---
History of Present Illness - Reason for Consult Consult date: 06/29/24 Medical management status post L2-L5 laminoforaminotomy - Chief Complaint Medical management - History of Present Illness Patient is a 59-year-old female with history of severe lumbar pain, COPD, GERD, hypertension, thyroid disorder, and skin disorder is seen in the surgical unit for consultation for medical management status post a L2-5 laminoforaminotomy and decompression on 06/29/2024. Patient has failed conservative management including PT, OT, medications, activity modifications and elected to proceed with surgical management for her lumbar pain. She subsequently underwent a L2-5 laminal foraminotomy for neural decompression on 06/29/[address] Pineda. Estimated intraoperative blood loss of 25 cc. No intraoperative complications were reported. Patient has attempted to ambulate to the bathroom since the surgery however was limited from postsurgical pain. She has been passing gas since the surgery but no bowel movement as of yet. Patient endorses pain in the low back and right hip and numbness and tingling sensation in right lower extremity. Currently endorses an 8 out of 10 pain in severity. Denies fever, chills, chest pain, shortness of breath, nausea/vomiting/belly pain, urinary/bowel incontinence. Vitals on admission temperature 98.1, pulse rate 58, respiratory rate 19, blood pressure 103/65, O2 sat of 97% on nasal cannula 2 L/min X-ray of the lumbar spine showed lumbar laminectomy Review of systems: Pertinent positives and negatives as discussed in HPI, a complete review of systems was performed and all other systems are negative. PMH: COPD, GERD, hypertension, thyroid disorder, skin disorder PSH: Cholecystectomy FMH: No pertinent family history Allergies: Amoxicillin, clavulanic acid, erythromycin, sulfamethoxazole, trimethoprim Social history: Tobacco: Current every day smoker started smoking at age [age] 1 pack/day Alcohol: Daily alcohol use Recreational drugs: Drug use Travel: No travel history Sick contacts: No sick contacts Physical examination: Vital signs reviewed General: nontoxic, no distress, appears at stated age Derm: warm, dry, intact Head: atraumatic, normocephalic, symmetric Eyes: EOMI, anicteric sclera Mouth: no lip lesion, mucus membranes moist Cardiovascular: S1 S2 reg, no murmur Lungs: CTA bilateral, no rhonchi, no rales, no accessory muscle use Abdominal: soft, non-tender to palpation Extremities: No cyanosis, clubbing, or pedal edema. Neuro: Alert, Oriented, Gross neurological examination did not reveal any focal deficits. Cranial nerves II to XII grossly intact. Bilateral upper and lower extremity muscle strength intact 5/5 and sensation intact. Psych: well appearing, appropriate affect Assessment/Plan: 59-year-old female with history of severe lumbar pain, COPD, GERD, hypertension, thyroid disorder, and skin disorder is seen in the surgical unit for consultation for medical management status post a L3-5 laminoforaminotomy and decompression on 06/29/2024. Patient is seen for consultation for medical management status post surgery. Active: #. Status post L2-5 laminoforaminotomy and decompression on 06/29/2024 Defer pain management and DVT prophylaxis to orthopedic surgery Chronic: #. Hypertension Restart lisinopril 10 mg daily #. Hypothyroidism Restart levothyroxine 25 mcg daily #. Vitamin D deficiency Restart ergocalciferol 1250 mcg weekly CODE STATUS: Full code Discussed with: Patient patient stable from medical standpoint for discharge check CMP and CBC in am THank you for this consultation I have seen and evaluated the patient today. I Discussed the case with the resident and agree with the resident's findings I edited the assessment and plan as necessary as documented in the resident's note. Past Medical History Past Medical History: COPD, GERD/Reflux, Hypertension, Skin Disorder, Thyroid Disorder Additional Past Medical History / Comment(s): chronic back pain,HIATAL HERNIA, BLOATING, ABD PAIN, CONSTIPATION, DIARRHEA, STATES "HAS AN OCCASIONAL SKIN CONDITION IN AREAS WHERE SHE SWEATS" History of Any Multi-Drug Resistant Organisms: None Reported Past Surgical History: Cholecystectomy Additional Past Surgical History / Comment(s): EGD,colonoscopy Past Anesthesia/Blood Transfusion Reactions: No Reported Reaction Additional Past Anesthesia/Blood Transfusion Reaction / Comm: no hx blood transfusion Smoking Status: Current every day smoker - Past Family History Mother Family Medical History: Deep Vein Thrombosis (DVT) Medications and Allergies Home Medications Medication Instructions Recorded Confirmed Type Levothyroxine Sodium [Synthroid] 25 mcg PO QAM 09/29/15 06/29/24 History Calcium Carbonate [Calcium] 600 mg PO HS 10/28/21 06/29/24 History lisinopriL [Zestril] 10 mg PO QAM 10/28/21 06/29/24 History Ergocalciferol [Vitamin D2 (1250 1,250 mcg PO WEEKLY 06/25/24 06/29/24 History Mcg = 67455 Iu)] HYDROcodone/APAP 5-325MG [[place] 1 tab PO TID PRN 06/25/24 06/29/24 History 5-325] Phenylephrine HCl [Sudafed PE] 10 mg PO DAILY PRN 06/25/24 06/29/24 History Cyclobenzaprine [Flexeril] 5 mg PO TID #21 tablet 06/29/24 Rx HYDROcodone/APAP 7.5-325MG [[place] 1 tab PO Q6HR PRN #28 tab 06/29/24 Rx 7.5-325] Naproxen [Naprosyn] 500 mg PO DAILY #30 tablet 06/29/24 Rx Sennosides/Docusate Sodium [[place] 1 each PO DAILY #20 capsule 06/29/24 Rx Plus 8.6-50 mg Softgel] Sennosides/Docusate Sodium [[place]enna 1 each PO DAILY #20 capsule 06/29/24 Rx Plus 8.6-50 mg Softgel] cefaDROXiL [Duricef] 500 mg PO Q12HR 5 Days #10 cap 06/29/24 Rx Allergies Allergy/AdvReac Type Severity Reaction Status Date / Time amoxicillin [From Augmentin] AdvReac Unknown Verified 06/29/24 11:30 clavulanic acid AdvReac Unknown Verified 06/29/24 11:30 [From Augmentin] erythromycin base AdvReac Nausea & Verified 06/25/24 14:00 Vomiting sulfamethoxazole AdvReac Rash/Hives Verified 06/25/24 14:01 [From Bactrim] trimethoprim [From Bactrim] AdvReac Rash/Hives Verified 06/25/24 14:01 Physical Exam Vitals: Vital Signs Temp Pulse Pulse Resp BP BP Pulse Ox 06/29/24 17:28 98.1 F 58 L 19 103/65 97 06/29/24 17:05 58 L 16 91/52 98 06/29/24 16:35 57 L 16 89/52 99 06/29/24 16:22 62 16 84/52 97 06/29/24 16:07 62 16 82/51 100 06/29/24 15:52 60 16 85/54 99 06/29/24 15:37 57 L 16 90/54 100 06/29/24 15:22 60 16 118/59 100 06/29/24 15:07 60 16 110/60 100 06/29/24 14:52 63 16 105/56 100 06/29/24 14:37 97 F L 84 16 128/57 99 06/29/24 11:25 96.9 F L 81 16 138/80 95 Intake and Output 06/29/24 06/29/24 06/29/24 06:59 14:59 22:59 Intake Total 1550 600 Output Total 175 Balance 1375 600 Intake: IV 1550 600 Output: Urine 150 Estimated Blood Loss 25 Other: # Voids 1 Weight 84 kg 84 kg
[2024-06-30] MEDS: LEVOTHYROXINE 25 MCG TAB PO SCH (06:33)
[2024-06-30] MEDS: lisinopriL 10 MG TAB PO SCH (08:34)
[2024-06-30 09:10] LABS: HGB 11.5 g/dL (12.0-15.0); MCH 31.9 pg (27.0-32.0); MCHC 30.3 g/dL (32.0-37.0); MCV 105.6 FL (80.0-97.0); Mean Platelet Volume 10.8 FL (9.5-12.2); NRBC Per 100 WBC 0 X 10*3/uL (0.00-0.01); Platelet Count 225 X 10*3/uL (140-440); RDW 13.1 % (11.5-14.5); WBC 7.78 X 10*3/uL (4.50-10.00)
[2024-06-30 09:41] LABS: BUN/Creat Ratio 16.33 Ratio (12.00-20.00); Blood Urea Nitrogen 9.8 mg/dL (9.0-27.0); Calcium 8.5 mg/dL (8.7-10.3); Carbon Dioxide 24.4 mmol/L (21.6-31.8); Chloride 106 mmol/L (96-109); Glucose 92 mg/dL (70-110); Potassium 4.9 mmol/L (3.5-5.5); Sodium 140 mmol/L (135-145)
[2024-06-30] MEDS ORDERED: NON FORMULARY DRUG (Phenylephrine Hcl [Sudafed Pe] 10 MG Tablet) PO PRN (10:19)
[2024-06-30 10:22] LABS: Basophils # (A) 0.03 X 10*3/uL (0.00-0.10); Basophils % (A) 0.4 %; Eosinophils # (A) 0.15 X 10*3/uL (0.04-0.35); Eosinophils % (A) 1.9 %; Lymphocytes # (A) 1.57 X 10*3/uL (0.90-5.00); Lymphocytes % (A) 20.2 %; Monocytes # (A) 0.57 X 10*3/uL (0.20-1.00); Monocytes % (A) 7.3 %; Neutrophils # (A) 5.43 X 10*3/uL (1.80-7.70); Neutrophils % (A) 69.8 %; RBC Morphology Normal (Normal)
[2024-06-30] MEDS ORDERED: FLUTICASONE NASAL 50MCG/SPRAY 16GM BTL EA NOSTRIL PRN (10:32)
--- NOTE | 2024-06-30 10:37 | P.PN ---
Subjective Progress Note Date: 06/30/24 Subjective: Patient seen and examined at bedside. No acute events overnight. Complaining of lightheadedness when changing positions in bed or chair. Also claims that she has sinus congestion. Pertinent positives and negatives as discussed above, a complete review of systems was performed and all other systems are negative. Vitals Signs Reviewed. General: Nontoxic, no distress, appears at stated age Derm: Warm, dry, back dressing not observed Head: Atraumatic, normocephalic, symmetric Eyes: EOMI, no lid lag, anicteric sclera Mouth: No lip lesion, mucus membranes moist Cardiovascular: S1S2 reg, no murmur Lungs: CTA bilateral, no rhonchi, no rales, no accessory muscle use Abdominal: Soft, nontender to palpation, no guarding, no appreciable organomegaly Ext: No gross muscle atrophy, no edema, no contractures Neuro: CN II-XI grossly intact, no focal neuro deficits Psych: Alert, oriented, appropriate affect Data Reviewed Today: Pertinent Labs: WBC 7.78, hemoglobin 11.5, sodium 140, potassium 4.9, creatinine 0.6 Imaging: No new imaging Assessment and Plan: Active: Postoperative symptomatic hypotension History of hypertension -Hold home lisinopril 10 mg daily -Encourage oral intake for fluids -Labs reviewed -Given instruction to patient with regards to holding lisinopril if systolic blood pressure less than 120 or symptomatic at home Hypothyroidism -Continue Synthroid 25 mcg daily Chronic allergic rhinosinusitis -Started on Flonase daily as needed Status post lumbar spine surgery Mild acute blood loss anemia, anticipated outcome of surgery -Management per orthopedic spine surgery -On [place] as needed, IV Dilaudid as needed, monitor for sedation -Bowel regimen and DVT prophylaxis per surgery Patient may be discharged if she is no longer symptomatically hypotensive. Thank you for allowing us to participate in the care of this pleasant patient. Do not hesitate to contact us with questions. Someone can be reached from the [facility] hospitalist group all hours of the day at [phone] or via [employer]. Objective - Vital Signs Vital signs: Vital Signs Temp 97.4 F L 06/30/24 07:07 Pulse 74 06/30/24 07:07 Resp 15 06/30/24 07:07 BP 94/60 06/30/24 07:07 Pulse Ox 96 12/28/24 07:07 FiO2 Intake & Output 06/29/24 06/30/24 06/30/24 18:59 06:59 18:59 Intake Total 2149 2189 Output Total 175 Balance 1974 2189 Weight 84 kg Intake: IV 2149 Oral 2189 Output: Urine 150 Estimated Blood Loss 25 Other: # Voids 1 5 - Labs CBC & Chem 7: 06/30/24 02:55 06/30/24 02:55 Labs: Abnormal Lab Results - Last 24 Hours (Table) 06/30/24 06/30/24 Range/Units 02:55 02:55 RBC 3.60 L (4.10-5.20) X 10*6/uL Hgb 11.5 L (12.0-15.0) g/dL MCV 105.6 H (80.0-97.0) FL MCHC 30.3 L (32.0-37.0) g/dL Calcium 8.5 L (8.7-10.3) mg/dL
--- NOTE | 2024-06-30 13:36 | P.PN ---
Subjective Progress Note Date: 06/30/24 Principal diagnosis: 1. L3-S1 SPONDYLOSIS WITH STENOSIS 2. L4-5 SPONDYLOLISTHESIS STABLE GRADE I 3. LE RADICULOPATHY 4. LOW BACK PAIN 5. L3 PARESTHESIAS Patient was seen at bedside this morning on 4 S. lying in the semirecumbent position dressing in place or lumbar spine. Patient says she has been in a lot of pain since surgery yesterday. She says she is having a difficult time stating she was able sit down on the toilet due to the intense spasms in the low back and legs. Patient is hoping to stay one more night in the hospital for additional pain control and therapy. Patient denies any other issues at this time. Objective - Vital Signs Vital signs: Vital Signs Temp 97.4 F L 06/30/24 07:07 Pulse 74 06/30/24 07:07 Resp 15 06/30/24 07:07 BP 94/60 06/30/24 07:07 Pulse Ox 96 06/30/24 07:07 FiO2 Intake & Output 06/29/24 06/30/24 06/30/24 18:59 06:59 18:59 Intake Total 2150 2190 Output Total 175 Balance 1975 2190 Weight 84 kg Intake: IV 2150 Oral 2190 Output: Urine 150 Estimated Blood Loss 25 Other: # Voids 1 5 - Exam Lumbar dressing clean, dry, intact. Sensation is equal, symmetric, bilat intact at the upper and lower extremities on exam. There is tenderness to the palpation over the lumbar spine incision. Nontender on rest of exam. Patient does have full range motion throughout bilateral upper extremity is in left lower extremities on exam. There is some the range of motion of right lower extremity and hip flexion/extension and knee flexion extension secondary to for pain status the low back. 5/5 in all major motor groups in bilateral upper extremities and left lower shoulder and exam. 4/5 in all major motor groups in right lower extremity exam. Neurovascular status intact bilaterally. DP pulses palpable bilaterally. Cap refill under 3 seconds in digits and pressurized. Negative Homans bilaterally. Negative clonus bilaterally. A positive bilaterally. - Labs CBC & Chem 7: 06/30/24 02:55 06/30/24 02:55 Labs: Abnormal Lab Results - Last 24 Hours (Table) 12/28/24 12/28/24 Range/Units 02:55 02:55 RBC 3.60 L (4.10-5.20) X 10*6/uL Hgb 11.5 L (12.0-15.0) g/dL MCV 105.6 H (80.0-97.0) FL MCHC 30.3 L (32.0-37.0) g/dL Calcium 8.5 L (8.7-10.3) mg/dL Assessment and Plan Assessment: 1. L3-S1 SPONDYLOSIS WITH STENOSIS; L4-5 SPONDYLOLISTHESIS STABLE GRADE I; LE RADICULOPATHY; LOW BACK PAIN; L3 PARESTHESIAS - Postoperative day 1 status post L2 to L5 laminoforaminotomy Plan: 1. L3-S1 SPONDYLOSIS WITH STENOSIS; L4-5 SPONDYLOLISTHESIS STABLE GRADE I; LE RADICULOPATHY; LOW BACK PAIN; L3 PARESTHESIAS - surgery performed yesterday, 06/29/2024L2 through L5 laminoforaminotomy. Patient stable at bedside this morning lying the sarcoma position with dressing in place over lumbar spine. Pain medication as needed. Weight-bear as tolerated with walker and assistance as needed. Due to patient's increased pain we will plan for patient to stay 1 additional night and plan for discharge home tomorrow on possibly Tuesday with home care. 2. Appreciate medical management 3. Pain management - [place]; Flexeril; gabapentin 4. DVT prophylaxis - mechanical 5. GI prophylaxis - senna; milk of magnesia 6. PT/OT - weightbearing as tolerated with walker and assistance as needed 7. Encourage incentive spirometer use 8. Discharge planning - likely home tomorrow responded with home care Time with Patient: Less than 30
[2024-06-30] MEDS: GABAPENTIN 300 MG CAP PO SCH (15:55)
[2024-06-30] MEDS: CYCLOBENZAPRINE 5 MG TAB PO SCH (15:55)
[2024-06-30] MEDS: SENNOSIDES-DOCUSATE SODIUM 1 EACH TAB PO PRN (20:32)
[2024-06-30 21:18] VITALS: RESP 16
[2024-07-01] MEDS: hydrOXYzine pamoate 25 MG CAP PO PRN (01:44)
[2024-07-01 07:17] VITALS: BP 125/82; PULSE 84; TEMP 97.9
--- NOTE | 2024-07-01 11:23 | P.PN ---
Subjective Progress Note Date: 07/01/24 Subjective: Patient seen and examined at bedside. No acute events overnight. Lightheadedness is improved. Pertinent positives and negatives as discussed above, a complete review of systems was performed and all other systems are negative. Vitals Signs Reviewed. General: Nontoxic, no distress, appears at stated age Derm: Warm, dry, back dressing not observed Head: Atraumatic, normocephalic, symmetric Eyes: EOMI, no lid lag, anicteric sclera Mouth: No lip lesion, mucus membranes moist Cardiovascular: S1S2 reg, no murmur Lungs: CTA bilateral, no rhonchi, no rales, no accessory muscle use Abdominal: Soft, nontender to palpation, no guarding, no appreciable organomegaly Ext: No gross muscle atrophy, no edema, no contractures Neuro: CN II-XI grossly intact, no focal neuro deficits Psych: Alert, oriented, appropriate affect Data Reviewed Today: Pertinent Labs: No new labs Imaging: No new imaging Assessment and Plan: Active: Postoperative symptomatic hypotension, resolved History of hypertension -Continue to hold home lisinopril 10 mg daily -Encourage oral intake for fluids -Orthostatic vitals negative -Given instruction to patient with regards to holding lisinopril if systolic blood pressure less than 120 or symptomatic at home Hypothyroidism -Continue Synthroid 25 mcg daily Chronic allergic rhinosinusitis -Continue on Flonase daily as needed Status post lumbar spine surgery Mild acute blood loss anemia, anticipated outcome of surgery -Management per orthopedic spine surgery -On [place] as needed, IV Dilaudid as needed, monitor for sedation -Bowel regimen and DVT prophylaxis per surgery Patient is medically optimized for discharge Thank you for allowing us to participate in the care of this pleasant patient. Do not hesitate to contact us with questions. Someone can be reached from the [facility] hospitalist group all hours of the day at [phone] or via [employer]. Objective - Vital Signs Vital signs: Vital Signs Temp 97.9 F 07/01/24 07:16 Pulse 84 07/01/24 07:16 Resp 16 07/01/24 07:16 BP 125/82 07/01/24 07:16 Pulse Ox 94 L 07/01/24 07:16 FiO2 Intake & Output 06/30/24 07/01/24 07/01/24 18:59 06:59 18:59 Other: # Voids 6 4 - Labs CBC & Chem 7: 06/30/24 02:55 06/30/24 02:55
--- NOTE | 2024-07-01 11:32 | P.DS ---
Providers Date of admission: 06/29/2024 Expected date of discharge: 07/01/24 Attending physician: Winston Pineda DO Consults: 06/29/24 15:43 Consult Physician Routine Consulting Provider: Edouard Vázquez Consult Reason/Comments: Medical Management a/p L2-L5 laminoforaminotomy Do you want consulting provider notified?: Yes Primary care physician: Luís [facility] [place] [facility] Course: Date of admission: 06/29/2024 Date of discharge: 07/01/2024 Admission diagnosis: L3-S1 SPONDYLOSIS WITH STENOSIS; L4-5 SPONDYLOLISTHESIS STABLE GRADE I; LE RADICULOPATHY; LOW BACK PAIN; L3 PARESTHESIAS Discharge diagnosis: Same Attending physician: Dr. Pineda Surgical procedures: L2 to L5 laminoforaminotomy Brief history: Patient is a 59-year-old female with a history of L3-S1 S1 spondylosis with stenosis; L4-5 spinal listhesis; lower extremity radiculopathy; low back pain. At this point patient has failed conservative treatment measures and has opted to proceed with a elective L2-L5 laminoforaminotomy. Hospital course: Details of patient's surgery can be found in operative report. Patient tolerated the procedure well and was subsequently transported to orthopedic floor. Patient's orthopeidc and medical care was provided daily. Patient had daily laboratory tests performed for evaluation of overall blood counts. Patient had daily physical therapy to include strengthening range of motion as well as education with walker ambulation. Patient was noted to have a relatively uneventful postoperative course. Patient reported satisfactory pain control with oral pain medications by postoperative day 2. Patient showed satisfactory progress with physical therapy. Patient moved steadily through the program and had no difficulty meeting the goals by postoperative day 2. Given patient's otherwise satisfactory course and having met physical therapy goals, plan is to discharge patient home on postoperative day 2. Discharge condition/disposition: Patient will be discharged home in stable condition. Discharge medications: Instructions are given on resumption of patient's normal daily medications per primary care recommendation, in addition patient will be prescribed Fertile; gabapentin; Flexeril; senna; Duricef. Spine Discharge and Recovery Instructions Date of Surgery: 06/29/2024 Diagnosis: L3-S1 SPONDYLOSIS WITH STENOSIS; L4-5 SPONDYLOLISTHESIS STABLE GRADE I; LE RADICULOPATHY; LOW BACK PAIN; L3 PARESTHESIAS Procedure: L2 to L5 laminoforaminotomy Medications: See medication list All medication refills should be obtained through your primary care doctor or your clinic spine surgeon. Please discuss prescription refills at your follow up appointment. Do not call the hospital for medication refills. Dressing: Leave your dressing in place for a total of 5 days post operatively. Then you may remove your dressing and leave open to air. Keep the area clean and if not able to keep area clean, then cover with sterile gauze and tape. Showering: You may shower 3 days after your procedure allowing soap and water to run over incision. Do not scrub. Do not soak. Blot dry. Follow up: Please confirm a follow up appointment with your surgeon 3 weeks post operatively. Please make an appointment to follow up with your PCP in 1-2 weeks after surgery for evaluation '3 phase, 3-week plan' POST OP WEEKS 1-3 1. Lifting/carrying/pushing/pulling limited to less than 5 pounds. 2. Do not sit for longer than 15 minutes at one time. Get up and walk around. Prolonged sitting is NOT advised. If you lay down, see if you can tolerate laying down on you front (belly side) 3. Walk for periods of 15 minutes = 1 mile but no longer; do it multiple times times each day. 4. Ice your low back after activity. POST OP WEEKS 3-6 1. Lifting limited to less than 20 pounds. 2. Do not sit for longer than 30 minutes at a time. Frequently change positions. Use a sit-to stand workstation or take frequent breaks from sitting if you have returned to work. 3. Walk for 30 minutes each day. If possible, do these three or more times a day POST OP WEEKS 6+ At your 6-week appointment we will give you a physical therapy referral to focus on a core stabilization and strengthening program. You should also work on leg & buttock strengthening, hamstring & quadriceps stretching, and continue a low impact aerobic activity program such as swimming, walking, or riding a stationary bicycle. During the initial 6 weeks after your surgery, you are at the highest risk of re-injuring your spine. You should generally avoid BLT's (bending, lifting and twisting combination motions) and follow the above guidelines to reduce the chance of reinjury. You can anticipate post op appointments in our office at approximately 3 weeks and 6 weeks after your surgery. INCISION CARE: If your incision is not draining you do NOT need to cover it with a dressing. Keep your incision clean, dry and intact. In most cases, we apply skin glue, gigi or sutures to the incision at the time of surgery. This will be like a crust or have the appearance of a scab and will fall off in time on its own. The stitches or gigi need to be removed at 3 weeks post op appointment. You may begin to shower 3 days after surgery (this allows the glue to junior well). However, please avoid scrubbing the incision site or peeling off any of the skin glue. This will ensure optimal healing of your incision. Also, during this time avoid soaking the incision area in water - this includes swimming pools, hot tubs or baths. No ointments, lotions or oils on the incision until your surgeon allows. Leave gigi, sutures or glue in place. Neurological dysfunction that comes on suddenly can also be a sign of a stroke. Below some common symptoms of a stroke are listed: B - balance difficulty such as sudden onset walking or leaning to one side - NEW E - eye problem such as sudden double vision or trouble seeing on one side - NEW F - Facial weakness or numbness on one side - NEW A - Arm or leg weakness or numbness on one side - NEW S - Slurred speech or difficulty with word finding - NEW T - Time is BRAIN! Call 911 as soon as you recognize these symptoms Diet: Consume a regular diet rich in vegetables and lean protein such as chicken or fish. You should consume in a ratio of approximately 20% fats|40% carbohydrates|40%protein. Vegetables, sweet potatoes, brown rice or quinoa are examples of good carbohydrates. Chips, white bread, cookies and sweets/sugar are examples of bad carbohydrates. Limit your bad carbs, go wild with good carbs. "Life's Simple 7" Guidelines as per [place] [employer] These will help you reclaim your life after surgery and veneer clipper helper in your recovery, keeping in mind your restrictions. (1) Get Active. Physical activity can help people lose weight, control high blood pressure and cholesterol, feel emotionally better, and sleep better. (2) Control Cholesterol. Avoid a diet high in saturated fat, trans fat, & cholesterol. Limit whole milk & cream, ice cream, butter, egg yolks, processed meats (like sausage and hot dogs), and fatty meats. Choose healthy foods that are low in saturated fat, trans fat and cholesterol which include: Fruits and vegetables, fiber rich grain products (like whole grain pasta and brown rice), lean meat such as chicken, fish, nuts, seeds, and legumes. (3) Eat Better. Eat small portions. Shop at the grocery with a list and do not stray from it. Tips for a healthy diet include: Limit sodium intake to less than 1500mg daily, avoid prepackaged, processed, and fast foods, choose a diet rich in fruits, vegetables, and whole grain, high fiber foods, and limit saturated & cholesterol in your diet. (4) Manage Blood Pressure. If you have high blood pressure, you should have a cuff at home so that you can check your blood pressure regularly. Be sure you have a good cuff. An arm one is generally better than a wrist one. Bring the cuff to a doctor's appointment to validate that the measurements that your cuff are taking are accurate. Take your blood pressure twice daily when you are sitting down and relaxing. Record the numbers in a log and bring this log with you to your doctors' appointments. (5) Lose Weight if your BMI is above 25. A healthy BMI is between 19-25. To calculate Your BMI, you may use a Standard BMI Calculator on the NIH BMI websit e: <www.nhlbi.nih.gov/guidelines/obesity/BMI/bmicalc.htm>. Weigh oneself daily. If you are overweight, set a goal to lose weight. A pound a week loss if needed is a good target. (6) Reduce Blood Sugar. Limit foods and liquids with "added sugars." (Added sugars include sucrose, fructose, glucose, maltose, dextrose, high fructose corn syrup, corn syrup, concentrated fruit juice and honey). (7) Stop Smoking. If you smoke, quitting smoking is one of the best things that you can do for your health. Smoking increases your risk of heart attack, stroke, and peripheral vascular disease, which is a build-up of plaque in your arteries. Please discard all the cigarettes and lighters in your house. Have a plan for what you will do when you have the urge to smoke. Direct and second-hand smoke shortens your life as well as the lives of your family, friends and others around you. For your health and the health of those around you, please consider quitting! Proper Bending Body Mechanics: Maintain a wide stance with one foot slightly in front of the other. Keep your back straight. Bend utilizing the strength in your hips and knees. Do not bend at the waist. Maintain the lifted object at your waist-level close to your body. Avoid lifting weight that causes immediately pain or pain anywhere in the body afterwards. Smoking/Nicotine If there was ever one thing that you could do to increase your overall health, decrease your risk of cardiovascular problems by about 39% the second you make the choice, it is to STOP SMOKING. Your body's most instant gratification is the second you stop smoking. We have all heard the studies, read the articles but it is true, smoking is extremely bad for your overall health, and moreover it is detrimental to your bone health. Nicotine, IN ANY FORM, kills bone cells, prevents your body from healing fractures, and significantly prolongs healing after surgery. In spine surgery specifically, it increases your risk of not healing your bones to create a fusion and increases your risk of having a revision surgery due to this up to 60%. I know it is hard. I know it feels impossible. But there are ways. Take control of your life. We are here to help you through it. And when you are ready, ask us and we can direct you to help if you desire. Use the START Plan to Quit Smoking (please visit the Helpguide.org website listed below for more information): S = Set a quit date. Choose a date within the next 2 weeks, so you have enough time to prepare without losing your motivation to quit. If you mainly smoke at work, quit on the weekend, so you have a few days to adjust to the change. T = Tell family, friends, and co-workers that you plan to quit. Let your friends and family in on your plan to quit smoking and tell them you need their support and encouragement to stop. Look for a quit virgilio who wants to stop smoking as well. You can help each other get through the rough times. A = Anticipate and plan for the challenges you'll face while quitting. Most people who begin smoking again do so within the first 3 months. You can help yourself make it through by preparing ahead for common challenges, such as nicotine withdrawal and cigarette cravings. R = Remove cigarettes and other tobacco products from your home, car, and work. Throw away all your cigarettes (no emergency pack!), lighters, ashtrays, and matches. Wash your clothes and freshen up anything that smells like smoke. Shampoo your car, clean your drapes and carpet, and steam your furniture. T = Talk to your doctor about getting help to quit. Your doctor can prescribe medication to help with withdrawal and suggest other alternatives. If you can't see a doctor, you can get many products over the counter at your local pharmacy or grocery store, including the nicotine patch, nicotine lozenges, and nicotine gum. Resources for Quitting Smoking: <https://www.[place].gov/documents/[facility]/Quit_Tobacco_Resources_for_patients_313 480_7.pdf> Supplementation: Take recommended dosages of Vitamin D and Calcium to help fortify your bones and help them to heal. See your health maintenance packet for dosages and recommended levels. DVT/VTE prophylaxis: You will be given compression stockings from the hospital. Wear these daily for the first two weeks after surgery. You may take them off at night. You may be prescribed a medication to help thin your blood. Take this as directed. If you are not prescribed this medication, early and frequent ambulation has been shown to be the best prophylaxis to deep vein thrombosis and sequelae related to this event. Assessment: L3-S1 SPONDYLOSIS WITH STENOSIS; L4-5 SPONDYLOLISTHESIS STABLE GRADE I; LE RADICULOPATHY; LOW BACK PAIN; L3 PARESTHESIAS Procedures: L2 to L5 laminoforaminotomy Patient Condition at Discharge: Good Plan - Discharge Summary Discharge Rx Participant: No New Discharge Prescriptions: New cefaDROXiL [Duricef] 500 mg PO Q12HR 5 Days #10 cap Naproxen [Naprosyn] 500 mg PO DAILY #30 tablet Sennosides/Docusate Sodium [Senna Plus 8.6-50 mg Softgel] 1 each PO DAILY #20 capsule Cyclobenzaprine [Flexeril] 5 mg PO TID #21 tablet HYDROcodone/APAP 7.5-325MG [Fertile 7.5-325] 1 tab PO Q6HR PRN #28 tab PRN Reason: Pain Sennosides/Docusate Sodium [Senna Plus 8.6-50 mg Softgel] 1 each PO DAILY #20 capsule Gabapentin [Neurontin] 300 mg PO TID #30 cap Continue Levothyroxine Sodium [Synthroid] 25 mcg PO QAM lisinopriL [Zestril] 10 mg PO QAM No Action Ergocalciferol [Vitamin D2 (1250 Mcg = 22420 Iu)] 1,250 mcg PO WEEKLY Calcium Carbonate [Calcium] 600 mg PO HS HYDROcodone/APAP 5-325MG [Fertile 5-325] 1 tab PO TID PRN PRN Reason: Pain Phenylephrine HCl [Sudafed PE] 10 mg PO DAILY PRN PRN Reason: Congestion Discharge Medication List Levothyroxine Sodium [Synthroid] 25 mcg PO QAM 09/29/15 [History] Calcium Carbonate [Calcium] 600 mg PO HS 10/28/21 [History] lisinopriL [Zestril] 10 mg PO QAM 10/28/21 [History] Ergocalciferol [Vitamin D2 (1250 Mcg = 09879 Iu)] 1,250 mcg PO WEEKLY 06/25/24 [History] HYDROcodone/APAP 5-325MG [Fertile 5-325] 1 tab PO TID PRN 06/25/24 [History] Phenylephrine HCl [Sudafed PE] 10 mg PO DAILY PRN 06/25/24 [History] Cyclobenzaprine [Flexeril] 5 mg PO TID #21 tablet 06/29/24 [Rx] HYDROcodone/APAP 7.5-325MG [Fertile 7.5-325] 1 tab PO Q6HR PRN #28 tab 06/29/24 [Rx] Naproxen [Naprosyn] 500 mg PO DAILY #30 tablet 06/29/24 [Rx] Sennosides/Docusate Sodium [Senna Plus 8.6-50 mg Softgel] 1 each PO DAILY #20 capsule 06/29/24 [Rx] Sennosides/Docusate Sodium [Senna Plus 8.6-50 mg Softgel] 1 each PO DAILY #20 capsule 06/29/24 [Rx] cefaDROXiL [Duricef] 500 mg PO Q12HR 5 Days #10 cap 06/29/24 [Rx] Gabapentin [Neurontin] 300 mg PO TID #30 cap 07/01/24 [Rx] Follow up Appointment(s)/Referral(s): Winston Pineda DO [Doctor of Osteopathic Medicine] - 2 Weeks (Office is closed at time of discharge. Please call for follow-up appointment.) Patient Instructions/Handouts: *Surgery [facility] - (Anesthesia) Discharge Instructions Outpatient Surgery, Laminectomy (GEN) Activity/Diet/Wound Care/Special Instructions: Spine Discharge and Recovery Instructions Date of Surgery: 06/29/2024 Diagnosis: 1. L3-S1 SPONDYLOSIS WITH STENOSIS 2. L4-5 SPONDYLOLISTHESIS STABLE GRADE I 3. LE RADICULOPATHY 4. LOW BACK PAIN 5. L3 PARESTHESIAS Procedure(s) Performed: 1. L4-5 LAMINOFORAMINOTOMY FOR NEURAL DECOMPRESSION 2. L3-4 LAMINOFORAMINOTOMY FOR NEURAL DECOMPRESSION 3. L2-3 LAMINOFORAMINOTOMY FOR NEURAL DECOMPRESSION Medications: See medication list All medication refills should be obtained through your primary care doctor or your clinic spine surgeon. Please discuss prescription refills at your follow up appointment. Do not call the hospital for medication refills. Dressing: Leave your dressing in place for a total of 5 days post operatively. Then you may remove your dressing and leave open to air. Keep the area clean and if not able to keep area clean, then cover with sterile gauze and tape. Showering: You may shower 3 days after your procedure allowing soap and water to run over incision. Do not scrub. Do not soak. Blot dry. Follow up: Please confirm a follow up appointment with your surgeon 3 weeks post operatively. Please make an appointment to follow up with your PCP in 1-2 weeks after surgery for evaluation '3 phase, 3-week plan' POST OP WEEKS 1-3 1. Lifting/carrying/pushing/pulling limited to less than 5 pounds. 2. Do not sit for longer than 15 minutes at one time. Get up and walk around. Prolonged sitting is NOT advised. If you lay down, see if you can tolerate laying down on you front (belly side) 3. Walk for periods of 15 minutes = 1 mile but no longer; do it multiple times times each day. 4. Ice your low back after activity. POST OP WEEKS 3-6 1. Lifting limited to less than 20 pounds. 2. Do not sit for longer than 30 minutes at a time. Frequently change positions. Use a sit-to stand workstation or take frequent breaks from sitting if you have returned to work. 3. Walk for 30 minutes each day. If possible, do these three or more times a day POST OP WEEKS 6+ At your 6-week appointment we will give you a physical therapy referral to focus on a core stabilization and strengthening program. You should also work on leg & buttock strengthening, hamstring & quadriceps stretching, and continue a low impact aerobic activity program such as swimming, walking, or riding a stationary bicycle. During the initial 6 weeks after your surgery, you are at the highest risk of re-injuring your spine. You should generally avoid BLT's (bending, lifting and twisting combination motions) and follow the above guidelines to reduce the chance of reinjury. You can anticipate post op appointments in our office at approximately 3 weeks and 6 weeks after your surgery. INCISION CARE: If your incision is not draining you do NOT need to cover it with a dressing. Keep your incision clean, dry and intact. In most cases, we apply skin glue, gigi or sutures to the incision at the time of surgery. This will be like a crust or have the appearance of a scab and will fall off in time on its own. The stitches or gigi need to be removed at 3 weeks post op appointment. You may begin to shower 3 days after surgery (this allows the glue to junior well). However, please avoid scrubbing the incision site or peeling off any of the skin glue. This will ensure optimal healing of your incision. Also, during this time avoid soaking the incision area in water - this includes swimming pools, hot tubs or baths. No ointments, lotions or oils on the incision until your surgeon allows. Leave gigi, sutures or glue in place. Neurological dysfunction that comes on suddenly can also be a sign of a stroke. Below some common symptoms of a stroke are listed: B - balance difficulty such as sudden onset walking or leaning to one side - NEW E - eye problem such as sudden double vision or trouble seeing on one side - NEW F - Facial weakness or numbness on one side - NEW A - Arm or leg weakness or numbness on one side - NEW S - Slurred speech or difficulty with word finding - NEW T - Time is BRAIN! Call 911 as soon as you recognize these symptoms Diet: Consume a regular diet rich in vegetables and lean protein such as chicken or fish. You should consume in a ratio of approximately 20% fats|40% carbohydrates |40%protein. Vegetables, sweet potatoes, brown rice or quinoa are examples of good carbohydrates. Chips, white bread, cookies and sweets/sugar are examples of bad carbohydrates. Limit your bad carbs, go wild with good carbs. "Life's Simple 7" Guidelines as per [place] [employer] These will help you reclaim your life after surgery and veneer clipper helper in your recovery, keeping in mind your restrictions. (1) Get Active. Physical activity can help people lose weight, control high blood pressure and cholesterol, feel emotionally better, and sleep better. (2) Control Cholesterol. Avoid a diet high in saturated fat, trans fat, & cholesterol. Limit whole milk & cream, ice cream, butter, egg yolks, processed meats (like sausage and hot dogs), and fatty meats. Choose healthy foods that are low in saturated fat, trans fat and cholesterol which include: Fruits and vegetables, fiber rich grain products (like whole grain pasta and brown rice), lean meat such as chicken, fish, nuts, seeds, and legumes. (3) Eat Better. Eat small portions. Shop at the grocery with a list and do not stray from it. Tips for a healthy diet include: Limit sodium intake to less than 1500mg daily, avoid prepackaged, processed, and fast foods, choose a diet rich in fruits, vegetables, and whole grain, high fiber foods, and limit saturated & cholesterol in your diet. (4) Manage Blood Pressure. If you have high blood pressure, you should have a cuff at home so that you can check your blood pressure regularly. Be sure you have a good cuff. An arm one is generally better than a wrist one. Bring the cuff to a doctor's appointment to validate that the measurements that your cuff are taking are accurate. Take your blood pressure twice daily when you are sitting down and relaxing. Record the numbers in a log and bring this log with you to your doctors' appointments. (5) Lose Weight if your BMI is above 25. A healthy BMI is between 19-25. To calculate Your BMI, you may use a Standard BMI Calculator on the NIH BMI website: <www.nhlbi.nih.gov/guidelines/obesity/BMI/bmicalc.htm>. Weigh oneself daily. If you are overweight, set a goal to lose weight. A pound a week loss if needed is a good target. (6) Reduce Blood Sugar. Limit foods and liquids with "added sugars." (Added sugars include sucrose, fructose, glucose, maltose, dextrose, high fructose corn syrup, corn syrup, concentrated fruit juice and honey). (7) Stop Smoking. If you smoke, quitting smoking is one of the best things that you can do for your health. Smoking increases your risk of heart attack, stroke, and peripheral vascular disease, which is a build-up of plaque in your arteries. Please discard all the cigarettes and lighters in your house. Have a plan for what you will do when you have the urge to smoke. Direct and second- hand smoke shortens your life as well as the lives of your family, friends and others around you. For your health and the health of those around you, please consider quitting! Proper Bending Body Mechanics: Maintain a wide stance with one foot slightly in front of the other. Keep your back straight. Bend utilizing the strength in your hips and knees. Do not bend at the waist. Maintain the lifted object at your waist-level close to your body. Avoid lifting weight that causes immediately pain or pain anywhere in the body afterwards. Smoking/Nicotine If there was ever one thing that you could do to increase your overall health, decrease your risk of cardiovascular problems by about 39% the second you make the choice, it is to STOP SMOKING. Your body's most instant gratification is the second you stop smoking. We have all heard the studies, read the articles but it is true, smoking is extremely bad for your overall health, and moreover it is detrimental to your bone health. Nicotine, IN ANY FORM, kills bone cells, prevents your body from healing fractures, and significantly prolongs healing after surgery. In spine surgery specifically, it increases your risk of not healing your bones to create a fusion and increases your risk of having a revision surgery due to this up to 60%. I know it is hard. I know it feels impossible. But there are ways. Take control of your life. We are here to help you through it. And when you are ready, ask us and we can direct you to help if you desire. Use the START Plan to Quit Smoking (please visit the [employer].org website listed below for more information): S = Set a quit date. Choose a date within the next 2 weeks, so you have enough time to prepare without losing your motivation to quit. If you mainly smoke at work, quit on the weekend, so you have a few days to adjust to the change. T = Tell family, friends, and co-workers that you plan to quit. Let your friends and family in on your plan to quit smoking and tell them you need their support and encouragement to stop. Look for a quit virgilio who wants to stop smoking as well. You can help each other get through the rough times. A = Anticipate and plan for the challenges you'll face while quitting. Most people who begin smoking again do so within the first 3 months. You can help yourself make it through by preparing ahead for common challenges, such as nicotine withdrawal and cigarette cravings. R = Remove cigarettes and other tobacco products from your home, car, and work. Throw away all your cigarettes (no emergency pack!), lighters, ashtrays, and matches. Wash your clothes and freshen up anything that smells like smoke. Shampoo your car, clean your drapes and carpet, and steam your furniture. T = Talk to your doctor about getting help to quit. Your doctor can prescribe medication to help with withdrawal and suggest other alternatives. If you can't see a doctor, you can get many products over the counter at your local pharmacy or grocery store, including the nicotine patch, nicotine lozenges, and nicotine gum. Resources for Quitting Smoking: <https://www.[place].gov/documents/[facility]/Quit_Tobacco_Resources_for_patients_313 480_7.pdf> Supplementation: Take recommended dosages of Vitamin D and Calcium to help fortify your bones and help them to heal. See your health maintenance packet for dosages and recommended levels. DVT/VTE prophylaxis: You will be given compression stockings from the hospital. Wear these daily for the first two weeks after surgery. You may take them off at night. You may be prescribed a medication to help thin your blood. Take this as directed. If you are not prescribed this medication, early and frequent ambulation has been shown to be the best prophylaxis to deep vein thrombosis and sequelae related to this event. Hold your lisinopril if lightheaded or BP less than 120/80 Discharge Disposition: HOME SELF-CARE
--- NOTE | 2024-07-01 11:49 | P.PN ---
Subjective Progress Note Date: 07/01/24 Principal diagnosis: 1. L3-S1 SPONDYLOSIS WITH STENOSIS 2. L4-5 SPONDYLOLISTHESIS STABLE GRADE I 3. LE RADICULOPATHY 4. LOW BACK PAIN 5. L3 PARESTHESIAS Patient was seen at bedside this morning lying in the semirecumbent position on 4 S. Patient says there is some improvement in regards to the pain in the low back. She says she does need to use a walker to ambulate around the room. Patient is looking forward to going home later today. She denies any other orthopedic complaints at this time. Objective - Vital Signs Vital signs: Vital Signs Temp 97.9 F 07/01/24 07:16 Pulse 84 07/01/24 07:16 Resp 16 07/01/24 07:16 BP 125/82 07/01/24 07:16 Pulse Ox 94 L 07/01/24 07:16 FiO2 Intake & Output 06/30/24 07/01/24 07/01/24 18:59 06:59 18:59 Other: # Voids 6 4 - Exam Lumbar dressing clean, dry, intact. Dressing taken down and changed at bedside this morning. Sensation is equal, symmetric, bilat intact at the upper and lower extremities on exam. There is tenderness to the palpation over the lumbar spine incision. Nontender on rest of exam. Patient does have full range motion throughout bilateral upper extremity is in left lower extremities on exam. There is some the range of motion of right lower extremity and hip flexion/extension and knee flexion extension secondary to for pain status the low back. 5/5 in all major motor groups in bilateral upper extremities and left lower shoulder and exam. 4/5 in all major motor groups in right lower extremity exam. Neurovascular status intact bilaterally. DP pulses palpable bilaterally. Cap refill under 3 seconds in digits and pressurized. Negative Homans bi laterally. Negative clonus bilaterally. A positive bilaterally. - Labs CBC & Chem 7: 06/30/24 02:55 06/30/24 02:55 Assessment and Plan Assessment: 1. L3-S1 SPONDYLOSIS WITH STENOSIS; L4-5 SPONDYLOLISTHESIS STABLE GRADE I; LE RADICULOPATHY; LOW BACK PAIN; L3 PARESTHESIAS - Postoperative day 2 status post L2 to L5 laminoforaminotomy Plan: 1. L3-S1 SPONDYLOSIS WITH STENOSIS; L4-5 SPONDYLOLISTHESIS STABLE GRADE I; LE RADICULOPATHY; LOW BACK PAIN; L3 PARESTHESIAS - surgery performed 06/29/2024L2 through L5 laminoforaminotomy. Dressing changed at bedside this morning. Pain medication as needed. Weight-bear as tolerated with walker and assistance as needed. Discharge home today with home care 2. Appreciate medical management 3. Pain management - [place]; Flexeril; gabapentin 4. DVT prophylaxis - mechanical 5. GI prophylaxis - senna; milk of magnesia 6. PT/OT - weightbearing as tolerated with walker and assistance as needed 7. Encourage incentive spirometer use 8. Discharge planning -discharge home today with home care Time with Patient: Less than 30
[2024-07-06] MEDS ORDERED: ERGOCALCIFEROL 1,250 MCG (50,000 IU) CAPSULE PO SCH (09:00)
== END 2024-07-01 13:44 | disposition home or self-care (01) ==
LOC: OR 10:55 → 4SSUR 17:07 → OR 07-01 13:44
PROVIDERS: ATTEND Orthopaedic Surgery
DX: M48.061 Spinal stenosis, lumbar region without neurogenic claudication (principal); M47.26 Other spondylosis with radiculopathy, lumbar region; M43.16 Spondylolisthesis, lumbar region; K21.9 Gastro-esophageal reflux disease without esophagitis; J44.9 Chronic obstructive pulmonary disease, unspecified; I10 Essential (primary) hypertension; G89.29 Other chronic pain; E66.9 Obesity, unspecified; E55.9 Vitamin D deficiency, unspecified; E03.9 Hypothyroidism, unspecified; G89.18 Other acute postprocedural pain; F17.210 Nicotine dependence, cigarettes, uncomplicated; Z68.25 Body mass index [BMI] 25.0-25.9, adult; Z79.1 Long term (current) use of non-steroidal anti-inflammatories (NSAID); Z79.890 Hormone replacement therapy; Z79.899 Other long term (current) drug therapy; Z88.0 Allergy status to penicillin; Z88.1 Allergy status to other antibiotic agents; Z88.2 Allergy status to sulfonamides; Z90.49 Acquired absence of other specified parts of digestive tract
CPT/HCPCS: 63047; 63048; 97162; 80048; 85025; 72100; J0690 ×2; J2405; J1171 ×3; J0665